=== PATIENT | female | born 1945 | race Caucasian/White ===

== ENCOUNTER 2018-06-02 17:27 | Emergency (ER) | payer MEDICARE, BC | END 2018-06-02 19:16 | disposition left against medical advice (07) | LOC: M ED 17:27 | DX: R42 Dizziness and giddiness (principal); Z53.21 Procedure and treatment not carried out due to patient leaving prior to being seen by health care provider; I25.10 Atherosclerotic heart disease of native coronary artery without angina pectoris; E11.9 Type 2 diabetes mellitus without complications; D64.9 Anemia, unspecified; Z95.5 Presence of coronary angioplasty implant and graft; Z79.899 Other long term (current) drug therapy; Z88.8 Allergy status to other drugs, medicaments and biological substances | CPT/HCPCS: 99281 ==

== ENCOUNTER → 2020-06-27 | Outpatient (CLI) | payer MEDICARE ==
[~2020-06-27] MED LIST: CLON0.2T PO
== END ==
LOC: M INFU 14:53 → M LAB 14:53
PROVIDERS: ATTEND Internal Medicine Nephrology
DX: D64.9 Anemia, unspecified (principal)

== ENCOUNTER 2020-06-28 11:50 | Outpatient (CLI) | payer MEDICARE ==
[2020-06-28] MEDS ORDERED: diphenhydrAMINE 25MG CAP ONE (12:09)
[2020-06-28] MEDS ORDERED: diphenhydrAMINE 25MG CAP As Ordered ONE (12:09)
== END 2020-06-28 16:40 | disposition home or self-care (01) ==
LOC: M INFU 11:50
PROVIDERS: ATTEND Internal Medicine Nephrology
DX: N18.9 Chronic kidney disease, unspecified (principal); D63.1 Anemia in chronic kidney disease
CPT/HCPCS: 36430; P9016